=== PATIENT | female | born 1990 | race Two or more races ===

== ENCOUNTER → 2016-07-07 | Outpatient (REF) | payer OTHER | LOC: M SFHCLERA 02:32 | PROVIDERS: ATTEND Nurse Practitioner Family | DX: R30.0 Dysuria (principal) ==

== ENCOUNTER 2017-03-10 16:46 | Emergency (ER) | payer OTHER ==
[~2017-03-10] VITALS: Ht 167.6 cm; Wt 68.2 kg
[2017-03-10] MEDS ORDERED: TRIN1TAB2 (16:55)
[2017-03-10] MEDS ORDERED: ADDE20CA3 (16:55)
[2017-03-10] MEDS ORDERED: LORA0.5T11 (16:55)
[2017-03-10 18:27] LABS: MEAN CORPUSCULAR HEMOGLOBIN 30.5 pg (27.0-33.0); MEAN CORPUSCULAR HGB CONC 34.3 g/dl (32.0-36.5); MEAN CORPUSCULAR VOLUME 88.7 fl (80.0-96.0); PLATELET COUNT, AUTOMATED 214 10^3/uL (150-450); RED CELL DISTRIBUTION WIDTH 11.9 % (11.5-14.5)
--- NOTE | 2017-03-10 20:40 | REPUSA ---
Clinical history: bleeding. Findings: Real-time transabdominal and transvaginal ultrasound images of the pelvis were obtained. An anteverted uterus is noted, measuring 8.5 x 3.8 x 4.3 centimeters. There is a intrauterine gestation al sac with a mean sac diameter 5.7 cm. No pole or yolk sac is identified. The uterus demonstra stu normal echotexture and echogenicity. The endometrial stripe measures 3 mm and is within normal li mits. The right ovary measures 2.0 x 1.0 2.0 cm. The left ovary measures 2.7 x 1.9 x 2.0 cm. There is a complex left ovarian cyst measuring 1.4 x 1.3 x 1.3 cm. No adnexal masses are seen. Color Doppler flow is seen within both ovaries. There is no evidence of free fluid. Impression: 1. Single intrauterine gestational sac measuring 5 weeks 2 days by ultrasound measurements. No pole or yolk sac is identified. There is no evidence of a subchorionic hemorrhage. 2. Complex left ovarian cyst. 3. Differential diagnosis includes early , missed , or ectopic . Follow-up with serial serum beta hCG levels is recommended for further evaluation.
[2017-03-10 21:15] VITALS: BP 114/69
== END 2017-03-10 21:15 | disposition home or self-care (01) ==
LOC: M ED 16:46
DX: O20.9 Hemorrhage in early pregnancy, unspecified (principal); Z3A.01 Less than 8 weeks gestation of pregnancy; O99.331 Smoking (tobacco) complicating pregnancy, first trimester; F17.210 Nicotine dependence, cigarettes, uncomplicated

== ENCOUNTER → 2017-03-18 | Outpatient (CLI) | payer OTHER ==
[~2017-03-18] MED LIST: ADDE20CA3; LORA0.5T11; TRIN1TAB2
--- NOTE | 2017-03-18 12:42 | REP ---
Clinical: Dating and viability. Comparison: 03/10/2017. Technique: Transvaginal first trimester obstetrical channel with color Doppler evaluation. Findings: Anteverted uterus measures 8.9 x 3.4 x 5.5 cm. A presumed gestational sac is identified with mean sac diameter 5.7 mm corresponding to 5 weeks 1 day gestational age. No yolk sac or pole identified, and these findings have not changed when compared to 03/10/2017. Maternal ovaries are normal in appearance and vascularity without torsion. Right ovary measures 3.4 x 1.8 x 2.2 cm and includes 1.7 cm dominant follicle; RI 0.57. Left ovary measures 2.5 x 2.3 x 2.0 cm; RI 0.55. Impression: No change from prior examination with presumed empty gestational sac. Findings concerning for early spontaneous . Differential diagnosis includes early live intra uterine and less likely ectopic . Correlation with serial HCG levels recommended. Signed by Madhav Valentin MD 03/18/2017 12:34 P
== END ==
LOC: M RAD 11:40
PROVIDERS: ATTEND Obstetrics & Gynecology
DX: O36.80X0 Pregnancy with inconclusive fetal viability, not applicable or unspecified (principal); Z3A.00 Weeks of gestation of pregnancy not specified

== ENCOUNTER 2017-06-16 15:33 | Day surgery (SDC) | payer OTHER ==
[2017-06-16] MEDS: LR 1,000 ML IV (16:15)
[2017-06-16 16:44] LABS: HEMATOCRIT 35.4 % (36.0-47.0); HEMOGLOBIN 12.1 g/dl (12.0-16.0); MEAN CORPUSCULAR HEMOGLOBIN 30.3 pg (27.0-33.0); MEAN CORPUSCULAR HGB CONC 34.2 g/dl (32.0-36.5); MEAN CORPUSCULAR VOLUME 88.5 fl (80.0-96.0); PLATELET COUNT, AUTOMATED 215 10^3/uL (150-450); RED CELL DISTRIBUTION WIDTH 11.8 % (11.5-14.5); WHITE BLOOD COUNT 7.2 10^3/uL (4.0-10.0)
[2017-06-16 17:13] LABS: ANION GAP 5 MEQ/L (8-16); BLOOD UREA NITROGEN 8 MG/DL (7-18); CALCIUM LEVEL 8.5 MG/DL (8.5-10.1); CARBON DIOXIDE LEVEL 26 MEQ/L (21-32); CHLORIDE LEVEL 109 MEQ/L (98-107); CREATININE FOR GFR 0.58 MG/DL (0.55-1.30); GLOMERULAR FILTRATION RATE > 60.0 (>60); GLUCOSE, FASTING 81 MG/DL (70-100); POTASSIUM SERUM 4.1 MEQ/L (3.5-5.1); SODIUM LEVEL 140 MEQ/L (136-145)
[2017-06-16] MEDS ORDERED: PROPOFOL 200 MG/20 ML VIAL As Ordered (20:02)
[2017-06-16] MEDS ORDERED: fentaNYL 100 MCG/2 ML INJECTION (J3010) As Ordered (20:02)
[2017-06-16] MEDS ORDERED: LIDOCAINE 2% INJ 100 MG/5 ML SDV (FOR ANES.) As Ordered (20:02)
[2017-06-16] MEDS ORDERED: MIDAZOLAM INJ 2 MG/2 ML VIAL (J2250) As Ordered (20:02)
[2017-06-16] MEDS ORDERED: KETOROLAC 60 MG/2 ML VIAL (J1885) As Ordered (20:28)
[2017-06-16] MEDS ORDERED: ONDANSETRON 4MG/2ML VIAL (J2405) As Ordered (20:28)
[2017-06-16] MEDS: ACETAMINOPHEN 650 MG SUPP PR (20:29)
[2017-06-16] MEDS: ACETAMINOPHEN 650 MG SUPP As Ordered (20:29)
[2017-06-16] MEDS ORDERED: MEPERIDINE INJ 25 MG/ML VIAL (J2175) IV (21:15)
[2017-06-16] MEDS ORDERED: ONDANSETRON 4MG/2ML VIAL (J2405) IV (21:15)
[2017-06-16] MEDS ORDERED: LR 1,000 ML IV (21:15)
[2017-06-16] MEDS ORDERED: METOCLOPRAMIDE INJ 10MG/2ML VIAL (J2765) IV (21:15)
[2017-06-16] MEDS ORDERED: fentaNYL 100 MCG/2 ML INJECTION (J3010) IV (21:15)
[2017-06-16] MEDS: PERCOCET 5MG/325MG TAB PO (21:23)
== END 2017-06-16 22:30 | disposition home or self-care (01) ==
LOC: M SDC 22:30
DX: O02.1 Missed abortion (principal); O99.341 Other mental disorders complicating pregnancy, first trimester; F90.9 Attention-deficit hyperactivity disorder, unspecified type; O99.011 Anemia complicating pregnancy, first trimester; D64.9 Anemia, unspecified; O99.331 Smoking (tobacco) complicating pregnancy, first trimester; F17.210 Nicotine dependence, cigarettes, uncomplicated; Z79.899 Other long term (current) drug therapy; Z3A.00 Weeks of gestation of pregnancy not specified
CPT/HCPCS: 59820